=== PATIENT | male | born 1995 | race Caucasian/White ===

== ENCOUNTER 2018-07-29 15:05 | Emergency (ER) | payer OTHER ==
[~2018-07-29] VITALS: Ht 175.3 cm; Wt 72.6 kg
[2018-07-29 15:08] VITALS: Ht 175.3 cm; Wt 72.6 kg
[2018-07-29 17:02] VITALS: BP 130/74
== END 2018-07-29 17:02 | disposition home or self-care (01) ==
LOC: ED 15:05
DX: S43.101A Unspecified dislocation of right acromioclavicular joint, initial encounter (principal); S30.811A Abrasion of abdominal wall, initial encounter; S70.211A Abrasion, right hip, initial encounter; V23.4XXA Motorcycle driver injured in collision with car, pick-up truck or van in traffic accident, initial encounter; Y93.89 Activity, other specified; Y92.89 Other specified places as the place of occurrence of the external cause; Y99.8 Other external cause status
CPT/HCPCS: J1885; Q0092